=== PATIENT | male | born 1950 | race Caucasian/White ===

== ENCOUNTER → 2019-03-13 | Outpatient (CLI) | payer OTHER ==
--- NOTE | 2019-03-17 07:19 | PF ---
[address] [address] PULMONARY FUNCTION REPORT Name: SUZAN HERNANDEZ [id number] Admission: 03/13/19 Attend Phys: Rosendo Harris MD Discharge: Date of : 52 Report #: [id number] THIS REPORT FOR: //name// CC: Rosendo Grewal DATE OF SERVICE: 03/13/2019 REQUESTING PHYSICIANS: Rosendo Harris MD and Sara Grewal NP Spirometry reveals a severe decrease in all flows. FEV1 is 0.80, which was 22% of predicted. FVC of 1.63, which was 33% of predicted. FEV1/FVC ratio was 49%. Mid flows were only 11% of predicted. After inhaled bronchodilator, there was improvement in the FEV1 to 0.97 which was a 22% improvement. Volumes are necessary for plethysmography. IMPRESSION: Spirometry reveals findings consistent with a very severe obstructive process. Cannot rule out concomitant restrictive process without lung volumes. There is improvement seen after inhaled bronchodilator. Clinical correlation advised. <ELECTRONICALLY SIGNED> By: Cynthia Perez MD 03/17/19 0719 [id number] Perez MD /nt
== END ==
LOC: M.PUL 09:23
DX: J98.4 Other disorders of lung (principal); J90 Pleural effusion, not elsewhere classified; Z95.818 Presence of other cardiac implants and grafts

== ENCOUNTER 2019-08-05 08:07 | Emergency (ER) | payer OTHER ==
[~2019-08-05] VITALS: Ht 177.8 cm; Wt 79.4 kg
[2019-08-05 08:38] VITALS: BP 0/0
== END 2019-08-05 14:17 ==
LOC: M.ERS 08:07
DX: R09.2 Respiratory arrest (principal); J44.9 Chronic obstructive pulmonary disease, unspecified; Z87.891 Personal history of nicotine dependence